=== PATIENT | female | born 1960 | race Two or more races ===

== ENCOUNTER 2016-11-01 10:14 | Emergency (ER) | payer OTHER ==
[2016-11-01 10:23] VITALS: RESP 18
[2016-11-01] MEDS ORDERED: IBUPROFEN 600 MG TAB PO ONE (10:42)
--- NOTE | 2016-11-01 12:26 | EDPHY ---
H & P Stated Complaint: Fell at work, injury to right knee Time Seen by Provider: 11/01/16 10:15 HPI/ROS: CHIEF COMPLAINT: back pain, right leg pain HISTORY OF PRESENT ILLNESS: 56-year-old female presents emergency department complaining of low back pain and right leg pain below the knee along with right hip pain. 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 Patient denies head strike, patient reports her foot was in the hole and she fell onto her butt. Patient denies numbness or tingling in her legs, no loss of control of her bowel or bladder. She denies previous medical problems. Patient reports her pain is constant, sharp in nature, worse with movement. REVIEW OF SYSTEMS: A comprehensive 10 point review of systems is otherwise negative aside from elements mentioned in the history of present illness. Source: Patient, EMS, Hotel Associate Exam Limitations: No limitations - Personal History Current Tetanus Diphtheria and Acellular Pertussis (TDAP): Yes Tetanus Vaccine Date: April 2016 - Medical/Surgical History Hx Asthma: No Hx Chronic Respiratory Disease: No Hx Diabetes: No Hx Cardiac Disease: No Hx Renal Disease: No Hx Cirrhosis: No Hx Alcoholism: No Hx HIV/AIDS: No Hx Splenectomy or Spleen Trauma: No Other PMH: Denies - Social History Smoking Status: Current some day smoker - Physical Exam Exam: Physical Exam Gen: Alert and Oriented, NAD HEENT: PERRL, moist mucous membranes NECK: no meningismus CV: regular rate and regular rhythm PULM: CTAB, no wheezes ABDOMEN: soft, non tender to palpation, BS present BACK: Midline lumbar tenderness to palpation, no paraspinal tenderness, no deformities, no ecchymosis NEURO: Neurologically grossly intact EXTREMITIES: Right knee with diffuse tenderness to palpation throughout, no swelling or ecchymosis, right anterior welsh with 3 cm x 3 cm area of ecchymosis and hematoma with tenderness to palpation. Right ankle with full range of motion , no tenderness or swelling, 2+ radial pulses, sensation intact to light touch. Right hip flexor with tenderness to palpation, pain flexion of hip, full range of motion of right hip SKIN: no rash or break in skin on exposed skin PSYCH: answers questions appropriately. Constitutional: Initial Vital Signs Temperature (C) 36.4 C 11/01/16 10:21 Heart Rate 76 05/01/17 10:21 Respiratory Rate 18 11/01/16 10:21 Blood Pressure 153/80 H 11/01/16 10:21 O2 Sat (%) 94 11/01/16 10:21 O2 Delivery Mode Room Air Allergies/Adverse Reactions: No Known Allergies Allergy (Unverified 11/01/16 10:23) Home Medications: Medication Instructions Recorded NK [No Known Home Meds] 11/01/16 Medical Decision Making - Diagnostics Imaging Results: Imaging Impressions Lumbar Spine X-Ray 11/01/16 10:34 Impression: 1. Mild concavity of the superior endplate of T11, which could be related to a Schmorl's node or less likely posttraumatic change. If pain persists or clinical suspicion warrants, consider CT or MRI. 2. 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 3. Additional findings as above. Findings discussed with Hannah Owens NP 11/01/2016 at 11:42. Tibia/Fibula X-Ray 11/01/16 10:34 Impression: No acute osseous findings. Knee X-Ray 11/01/16 10:35 Impression: No acute osseous findings. Pelvis X-Ray 11/01/16 10:38 Impression: No acute osseous findings. Imaging: Discussed imaging studies w/ call specialist Radiologist ED Course/Re-evaluation: Pelvis, right knee and right tib-fib x-rays obtained along with L-spine x-ray. Patient is given 600 mg of ibuprofen. X-rays are are all unremarkable. Patient is up ambulatory to the bathroom without assistance with normal gait. She reports she is feeling better. Patient will be discharged home, she is instructed to take ibuprofen and follow up with Ortho for symptoms that are not improving. She is given return precautions for any neurovascular compromise. Differential Diagnosis: Diagnosis considered but not limited to fracture, muscle strain, contusion - Data Points Medications Given: Discontinued Medications Ibuprofen (Motrin) 600 mg PO EDNOW ONE Stop: 11/01/16 10:43 Last Admin: 11/01/16 10:46 Dose: 600 mg Departure - Departure Disposition: Home, Routine, Self-Care Clinical Impression: Lumbar strain Qualifiers: Encounter type: initial encounter Qualified Code(s): S39.012A - Strain of muscle, fascia and tendon of lower back, initial encounter Contusion of right leg Qualifiers: Encounter type: initial encounter Qualified Code(s): S80.11XA - Contusion of right lower leg, initial encounter Condition: Good Instructions: Low Back Strain (ED), Contusion in Adults (ED) Additional Instructions: Rest, ice, elevate, take 600 mg of ibuprofen every 8 hours with food for 3-5 days. Wear Adonis wrap to your right knee for comfort. Follow up with the orthopedist for pain that is not improving in the next 5-7 days, return to the emergency department for any numbness or tingling in your leg, new or worsening symptoms. Descanse, hielo, eleve, tome 600 mg de ibuprofen cada 8 horas con comida por 3- 5 de la paz. Use la venda Adonis en la rodilla derecha para comodidad. Marie un seguimiento con el ortopedico por dolor que no mejore en 5-7 de la paz, regrese al departamento de emergencias por cualquier adormecimiento u hormigueo en la pierna, sintomas nuevos o si estos empeoran. Referrals: Andrew Delcid MD [Medical Doctor] - As per Instructions (Orthopedist on-call) Stand Alone Forms: Work Comp Follow Up Print Language: [place]
[2016-11-01 12:55] VITALS: BP 134/56; PULSE 70; TEMP 97.7; O2SAT 95
== END 2016-11-01 12:55 | disposition home or self-care (01) ==
DX: S39.012A Strain of muscle, fascia and tendon of lower back, initial encounter (principal); S80.11XA Contusion of right lower leg, initial encounter; F17.200 Nicotine dependence, unspecified, uncomplicated; W17.2XXA Fall into hole, initial encounter; Y92.69 Other specified industrial and construction area as the place of occurrence of the external cause; Y99.0 Civilian activity done for income or pay; Y93.89 Activity, other specified